=== PATIENT | male | born 1975 | race African-American/Black ===

== ENCOUNTER 2022-11-19 13:00 | Emergency (ER) | payer BC ==
[2022-11-19 13:11] VITALS: BMI 27.3
[2022-11-19] MEDS ORDERED: ACETAMINOPHEN 1000 MG/100 ML BAG IVPB ONE (13:33)
[2022-11-19] MEDS ORDERED: ACETAMINOPHEN INJECTION 100 ML IVPB ONE (13:44)
[2022-11-19 14:03] LABS: BASO % 1.2 % (0-2.0); EOS % 3.7 % (0-4.5); HEMATOCRIT 43.7 % (35.4-49); HEMOGLOBIN 14.4 GM/dL (11.7-16.9); LYMPH % 37.2 % (8-40); MCH 28.9 pg (25.7-33.7); MCHC 32.9 g/dl (32.0-35.9); MEAN CELL VOLUME 87.7 fl (80-96); MEAN PLT VOLUME 7.8 fl (7.5-11.1); MONO % 14.9 % (3.8-10.2); PLATELET COUNT 279 10^3/uL (134-434); RBC 4.98 M/mm3 (4.00-5.60); RDW 14.5 % (11.9-15.9); WHITE BLOOD COUNT 5.9 K/mm3 (4.0-10.0)
[2022-11-19 14:25] LABS: POTASSIUM 4.1 mmol/L (3.5-5.1)
[2022-11-19 14:27] LABS: ALBUMIN 3.6 g/dl (3.4-5.0); BLOOD UREA NITROGEN 15.2 mg/dL (7-18); CALCIUM 9.2 mg/dL (8.5-10.1)
[2022-11-19 14:30] LABS: CREATININE 1.4 mg/dL (0.55-1.3)
[2022-11-19 14:32] LABS: BILIRUBIN,TOTAL 0.4 mg/dL (0.2-1); TOT PROT 7.3 g/dl (6.4-8.2)
[2022-11-19 16:28] VITALS: RESP 22; TEMP 98.1
[2022-11-19] MEDS ORDERED: amLODIPine BESYLATE 5 MG TABLET (FP) PO ONE (18:07)
[2022-11-19] MEDS ORDERED: amLODIPine BESYLATE 5 MG TABLET (FP) ONE (18:33)
[2022-11-19 19:51] VITALS: BP 158/115; PULSE 88
== END 2022-11-19 20:59 | disposition home or self-care (01) ==
LOC: JER 13:00
PROC: 3E033NZ Introduction of Analgesics, Hypnotics, Sedatives into Peripheral Vein, Percutaneous Approach (ICD-10-PCS; principal; 2022-11-19)
DX: R07.89 Other chest pain (principal); Z20.822 Contact with and (suspected) exposure to COVID-19
CPT/HCPCS: 0241U-QW; 36415; 71045-TC-FY; 71275-TC; 74174-TC; 80053; 84484; 85025; 93005; 93010; 99285-25